=== PATIENT | male | born 2000 | race Caucasian/White ===

== ENCOUNTER 2020-04-13 13:44 | Emergency (ER) | payer OTHER ==
[~2020-04-13] VITALS: Ht 188 cm; Wt 122.0 kg
[2020-04-13] MEDS ORDERED: KETOROLAC 60 MG/2 ML VIAL IM STA (14:05)
[2020-04-13] MEDS ORDERED: ORPHENADRINE 60 MG/2 ML (NORFLEX) AMP (ED ONLY) IM STA (14:05)
--- NOTE | 2020-04-13 14:15 | ED Fall/Injury ---
General Chief Complaint: Trauma-Non Activation Stated Complaint: FELL, SOB, DIFFICULTY LIFTING ARMS, LEG WEAKNESS Nursing Triage Note: PT STATES HE FELL ON SATURDAY FROM A STANDING POSITION, NO LOC, FELL ON SOME FURNATURE, CC OF MID BACK PAIN. History of Present Illness Date Seen by Provider: Apr 13, 2020 Time Seen by Provider: 13:56 Initial Comments 19-year-old male presents after sustaining a fall on 04/09/2020. He reports being in a small room and losing his balance causing him to fall onto a TV stand and breaking a basket. He had no pain initially after the fall but today he began to have acute pain in his mid thoracic region, pain with inspiration, and neck pain. He has not taken any pain medication prior to arriva l as his symptoms just began today when he was getting ready to shower. He does report hitting his head at the time of the fall but no loss of consciousness. The fall was witnessed. Occurred: other (04/09/20) Severity: moderate Injuries/Pain Location: chest, back (mid thoracic) Context: lost balance Loss of Consciousness: no loss of consciousness Allergies and Home Medications Allergies Coded Allergies: No Known Drug Allergies (Unverified , 04/13/20) Patient Home Medication List Home Medication List Reviewed: Yes Review of Systems Review of Systems Constitutional: no symptoms reported, see HPI Respiratory: see HPI; No cough; dyspnea on exertion Gastrointestinal: no symptoms reported Musculoskeletal: see HPI, back pain All Other Systems Reviewed Negative Unless Noted: Yes Past Busopan-Dqrzkr-Kusjsb Hx Past Med/Social Hx: Reviewed Nursing Past Med/Soc Hx Patient Social History Alcohol Use: Occasionally Uses Smoking Status: Never a Smoker Recent Infectious Disease Expo: No Recent Hopitalizations: No Seasonal Allergies Seasonal Allergies: Yes Past Medical History Surgeries: No Respiratory: No Cardiac: No Neurological: Yes Headaches /Migraines Genitourinary: No Gastrointestinal: No Musculoskeletal: No Endocrine: No HEENT: No Psychosocial: Yes (AUSTISUM, RESTLESS LEG) ADD/ADHD, Anxiety, PTSD, Depression Integumentary: No Physical Exam Vital Signs Vital Signs - First Documented 04/13/20 04/13/20 13:56 15:27 Temp 36.3 Pulse 91 Resp 20 B/P (MAP) 146/94 (111) Pulse Ox 97 O2 Delivery Room Air Capillary Refill : Less Than 3 Seconds Height, Weight, BMI Height: '" Weight: lbs. oz. kg; 34.00 BMI Method: General Appearance: WD/WN, no apparent distress HEENT: PERRL/EOMI, normal ENT inspection, TMs normal, pharynx normal Neck: non-tender, full range of motion, supple, normal inspection Cardiovascular: normal peripheral pulses, regular rate, rhythm Respiratory: chest non-tender, lungs clear, normal breath sounds, no respiratory distress, no accessory muscle use Gastrointestinal: normal bowel sounds, non tender, soft Back: normal inspection, no CVA tenderness; No decreased range of motion; muscle spasm, vertebral tenderness (T5-T7, No ecchymosis or erythema) Neurologic/Psychiatric: no motor/sensory deficits, alert, normal mood/affect, oriented x 3 Skin: normal color, warm/dry Dilia Coma Score Best Eye Response: (4) Open Spontaneously Best Verbal Response: (5) Oriented Best Motor Response: (6) Obeys Commands [place] Total: 15 Progress/Results/Core Measures Results/Orders Lab Results Laboratory Tests Test 04/13/20 14:49 Range/Units Urine Color YELLOW Urine Clarity CLEAR Urine pH 7.0 5-9 Urine Specific [place] 1.025 H 1.016-1.022 Urine Protein NEGATIVE NEGATIVE Urine Glucose (UA) NEGATIVE NEGATIVE Urine Ketones NEGATIVE NEGATIVE Urine Nitrite NEGATIVE NEGATIVE Urine Bilirubin NEGATIVE NEGATIVE Urine Urobilinogen 1.0 < = 1.0 MG/DL Urine Leukocyte Esterase NEGATIVE NEGATIVE Urine RBC (Auto) NEGATIVE NEGATIVE Urine RBC RARE /HPF Urine WBC RARE /HPF Urine Squamous Epithelial Cells RARE /HPF Urine Crystals NONE /LPF Urine Bacteria NEGATIVE /HPF Urine Casts NONE /LPF Urine Mucus NEGATIVE /LPF Urine Culture Indicated NO My Orders Orders - VINAY PHILIP Ua Culture If Indicated (04/13/20 14:05) Ketorolac Injection (Toradol Injection) (04/13/20 14:05) Orphenadrine Inj (Ed Only) (Norflex Inje (04/13/20 14:05) Ct Head/Cervical Spine Wo (04/13/20 14:05) Ct Thoracic Spine Wo (04/13/20 14:05) Chest Pa/Lat (2 View) (04/13/20 14:05) Vital Signs/I&O 04/13/20 04/13/20 13:56 15:27 Temp 36.3 36.3 Pulse 91 87 Resp 20 20 B/P (MAP) 146/94 (111) 142/89 (111) Pulse Ox 97 O2 Delivery Room Air Room Air Blood Pressure Mean: 111 Progress Progress Note : Time: 13:56 Progress Note Patient seen and evaluated, will obtain x-rays of the chest, CT of the head cervical and thoracic spine. Patient offered IM Norflex and Toradol. He refused these medication. He declines the need for any pain medicine. 1450 CT and chest x-rays negative. Patient reports his pain improved significantly while getting the CT scan he felt a pop in his upper back and the pain resolved. Declines any need for treatment at this time. 1515 Discharge instructions and return precautions reviewed with the patient. All questions answered. Diagnostic Imaging [facility]: Xray Comments NAME: MORENA TORRES [facility] REC#: [id number] PT STATUS: REG ER : 2000 PHYSICIAN: VINAY PHILIP ADMIT DATE: 04/13/20/ER Draft Date of Exam:04/13/20 CHEST PA/LAT (2 VIEW) INDICATION: SOA after fall. COMPARISON: None FINDINGS: Frontal and lateral views of the chest demonstrate normal heart size and pulmonary vascularity. The lungs are clear. There are no signs of infiltrate, pleural effusions or pneumothoraces. The visualized osseous structures show no acute abnormalities. IMPRESSION: 1. No acute process. No signs of infiltrates, effusions or pneumothoraces. Dictated on workstation # [id number] Dict: 04/13/20 1437 Trans: 04/13/20 1438 [facility] [id number] Interpreted by: YASMIN ROSARIO MD Electronically signed by: [facility]: CT Comments NAME: MORENA TORRES [facility] REC#: [id number] PT STATUS: REG ER : 2000 PHYSICIAN: VINAY PHILIP ADMIT DATE: 04/13/20/ER Draft Date of Exam:04/13/20 CT HEAD/CERVICAL SPINE WO PROCEDURE: CT head and CT cervical spine without contrast. TECHNIQUE: Multiple contiguous axial images were obtained through the brain and cervical spine without the use of intravenous contrast. Sagittal and coronal reformations through the cervical spine were then performed. Auto Exposure Controls were utilized during the CT exam to meet ALARA standards for radiation dose reduction. INDICATION: Fall. COMPARISON: No prior studies are available for comparison. FINDINGS: CT head: The ventricles and sulci are within normal limits. No sulcal effacement or midline shift is identified. No acute intra-axial or extra-axial hemorrhage is detected. Cisterns are patent. Visualized paranasal sinuses are clear. IMPRESSION: No acute intracranial process is detected. CT cervical spine: Alignment of the cervical spine is normal. No fracture is identified. Prevertebral tissues are within normal limits. Odontoid is intact. IMPRESSION: No acute bony abnormality is detected. Dictated on workstation # [id number] Dict: 04/13/20 1431 Trans: 04/13/20 1435 [facility] [id number] Interpreted by: TESS MARISCAL MD Electronically signed by: [facility]: CT Comments NAME: MORENA TORRES [facility] REC#: [id number] PT STATUS: REG ER : 2000 PHYSICIAN: VINAY PHILIP ADMIT DATE: 04/13/20/ER Draft Date of Exam:04/13/20 CT THORACIC SPINE WO PROCEDURE: CT thoracic spine without contrast. TECHNIQUE: Multiple axial computerized tomography images were obtained from the base of the thoracic spine to the vertex without intravenous contrast. Auto Exposure Controls were utilized during the CT exam to meet ALARA standards for radiation dose reduction. INDICATION: Trauma. Back pain. COMPARISON: None. FINDINGS: Normal alignment. Vertebral body heights are preserved. No fractures. No substantial spondylotic change. No evidence of neural impingement. The visualized ribs are intact. Paravertebral soft tissues are negative. IMPRESSION: Negative thoracic spine CT. Dictated on workstation # [id number] Dict: 04/13/20 1433 Trans: 04/13/20 1438 [facility] [id number] Interpreted by: EILAS THORNTON MD Electronically signed by: Departure Impression Primary Impression: Fall Qualified Codes: W19.XXXA - Unspecified fall, initial encounter Additional Impression: Upper back pain Disposition: HOME, SELF-CARE Condition: Improved Departure-Patient Inst. Decision time for Depature: 15:10 Referrals: [facility] (PCP) Primary Care Physician JAM PITTMAN MD (Family) Primary Care Physician Patient Instructions: Upper Back Pain (DC) Add. Discharge Instructions: Alternate heat and ice to your upper back for pain. Alternate between Tylenol 650 mg and ibuprofen 600 mg every 4 hours for pain. Follow-up with your primary care provider if symptoms are not improving or worsen. Return to the emergency department for new, urgent healthcare needs. All discharge instructions reviewed with patient and/or family. Voiced understanding. Copy Copies To 1: JAM PITTMAN MD, AMY ARNP Apr 13, 2020 14:15
--- NOTE | 2020-04-13 14:35 | Diagnostic Imaging Report ---
PROCEDURE: CT head and CT cervical spine without contrast. TECHNIQUE: Multiple contiguous axial images were obtained through the brain and cervical spine without the use of intravenous contrast. Sagittal and coronal reformations through the cervical spine were then performed. Auto Exposure Controls were utilized during the CT exam to meet ALARA standards for radiation dose reduction. INDICATION: Fall. COMPARISON: No prior studies are available for comparison. FINDINGS: CT head: The ventricles and sulci are within normal limits. No sulcal effacement or midline shift is identified. No acute intra-axial or extra-axial hemorrhage is detected. Cisterns are patent. Visualized paranasal sinuses are clear. IMPRESSION: No acute intracranial process is detected. CT cervical spine: Alignment of the cervical spine is normal. No fracture is identified. Prevertebral tissues are within normal limits. Odontoid is intact. IMPRESSION: No acute bony abnormality is detected. Dictated by: Dictated on workstation # [id number]
--- NOTE | 2020-04-13 14:39 | Diagnostic Imaging Report ---
PROCEDURE: CT thoracic spine without contrast. TECHNIQUE: Multiple axial computerized tomography images were obtained from the base of the thoracic spine to the vertex without intravenous contrast. Auto Exposure Controls were utilized during the CT exam to meet ALARA standards for radiation dose reduction. INDICATION: Trauma. Back pain. COMPARISON: None. FINDINGS: Normal alignment. Vertebral body heights are preserved. No fractures. No substantial spondylotic change. No evidence of neural impingement. The visualized ribs are intact. Paravertebral soft tissues are negative. IMPRESSION: Negative thoracic spine CT. Dictated by: Dictated on workstation # [id number]
--- NOTE | 2020-04-13 14:39 | Diagnostic Imaging Report ---
INDICATION: SOA after fall. COMPARISON: None FINDINGS: Frontal and lateral views of the chest demonstrate normal heart size and pulmonary vascularity. The lungs are clear. There are no signs of infiltrate, pleural effusions or pneumothoraces. The visualized osseous structures show no acute abnormalities. IMPRESSION: 1. No acute process. No signs of infiltrates, effusions or pneumothoraces. Dictated by: Dictated on workstation # [id number]
[2020-04-13 14:55] LABS: BILIRUBIN,URINE NEGATIVE (NEGATIVE); CLARITY,URINE CLEAR; COLOR,URINE YELLOW; GLUCOSE, URINE (UA) NEGATIVE (NEGATIVE); KETONES,URINE NEGATIVE (NEGATIVE); LEUKOCYTE ESTERASE ,URINE NEGATIVE (NEGATIVE); NITRITE,URINE NEGATIVE (NEGATIVE); PROTEIN,URINE NEGATIVE (NEGATIVE)
[2020-04-13 15:02] LABS: BACTERIA,URINE NEGATIVE /HPF; RBC,URINE RARE /HPF; SQUAMOUS EPITHELIAL CELL,UR RARE /HPF; WBC,URINE RARE /HPF
[2020-04-13 15:27] VITALS: BP 142/89
== END 2020-04-13 15:27 | disposition home or self-care (01) ==
LOC: ER 13:47
DX: M54.6 Pain in thoracic spine (principal); M54.2 Cervicalgia
CPT/HCPCS: 70450; 71046; 72125; 72128; 81000